=== PATIENT | male | born 1980 | race Caucasian/White ===

== ENCOUNTER 2017-07-03 11:12 | Emergency (ER) | payer OTHER ==
[~2017-07-03] VITALS: Ht 170.2 cm; Wt 93.0 kg
[2017-07-03] MEDS ORDERED: LORazepam 2 MG/ML, 1ML ONE (11:44)
[2017-07-03] MEDS ORDERED: LORazepam 2 MG/ML, 1ML IVPush ONE (12:30)
[2017-07-03 12:33] VITALS: BP 165/111
[2017-07-03] MEDS ORDERED: SODIUM CHLORIDE 0.9% 1,000ML IVBOLUS ONE (13:00)
[2017-07-03] MEDS ORDERED: SODIUM CHLORIDE FLUSH 10ML SYR IVF ONE (13:00)
== END 2017-07-03 12:57 | disposition home or self-care (01) ==
LOC: ED 11:59
DX: T18.108A Unspecified foreign body in esophagus causing other injury, initial encounter (principal); X58.XXXA Exposure to other specified factors, initial encounter; Y93.89 Activity, other specified; Y99.8 Other external cause status; Y92.89 Other specified places as the place of occurrence of the external cause
CPT/HCPCS: 96374; 99284; J2060; J7030

== ENCOUNTER → 2017-07-30 | Outpatient (CLI) | payer OTHER | LOC: RAD 14:44 | PROVIDERS: ATTEND Physician Assistant Surgical | DX: M48.02 Spinal stenosis, cervical region (principal); M79.89 Other specified soft tissue disorders | CPT/HCPCS: 72050 ==

== ENCOUNTER → 2017-09-21 | Outpatient (CLI) | payer OTHER | END | disposition home or self-care (01) | LOC: RAD 09:30 | PROVIDERS: ATTEND Physician Assistant Surgical | DX: M48.02 Spinal stenosis, cervical region (principal) | CPT/HCPCS: 72050 ==

== ENCOUNTER 2018-02-13 20:30 | Emergency (ER) | payer OTHER ==
[~2018-02-13] VITALS: Ht 170.2 cm; Wt 96.4 kg
[2018-02-13 20:31] VITALS: BP 158/108
[2018-02-13] MEDS ORDERED: DEXAMETHASONE 4 MG TABLET PO ONE (21:00)
[2018-02-13] MEDS ORDERED: DEXAMETHASONE 4 MG TABLET ONE (21:03)
== END 2018-02-13 22:01 | disposition home or self-care (01) ==
LOC: ED 21:35
DX: J02.0 Streptococcal pharyngitis (principal); K12.2 Cellulitis and abscess of mouth
CPT/HCPCS: 99283

== ENCOUNTER 2019-08-02 12:16 | Emergency (ER) | payer OTHER ==
[~2019-08-02] VITALS: Ht 172.7 cm; Wt 91.9 kg
[2019-08-02 12:28] VITALS: BP 144/93
--- NOTE | 2019-08-02 12:38 | NUR ---
C/O BODY ACHES, FEVER, SORE THROAT - SX STARTED 2 WEEKS AGO. SPOUSE IN ROOM. NO FLU VACCINATION. HAS TRIED: HALLS, THERA-FLU, NYQUIL, DAYQUIL, TYLENOL "LEFT OVER ANTIBIOTIC" (AMOXICILLIN). IBUPROFEN YESTERDAY; NO MEDS FOR SX TODAY.
--- NOTE | 2019-08-02 12:47 | NUR ---
C/O RT SHOULDER PAIN. EMPLOYMENT: [employer], PAINTING.
== END 2019-08-02 13:50 | disposition home or self-care (01) ==
LOC: ED 13:40
DX: J06.9 Acute upper respiratory infection, unspecified (principal); M25.511 Pain in right shoulder
CPT/HCPCS: 71046; 87081; 87880; 99284

== ENCOUNTER 2019-09-04 20:19 | Emergency (ER) | payer OTHER ==
[~2019-09-04] VITALS: Ht 170.2 cm; Wt 94.1 kg
[2019-09-04] MEDS ORDERED: SODIUM CHLORIDE FLUSH 10ML SYR IVF ONE (20:30)
--- NOTE | 2019-09-04 21:23 | NUR ---
pt called to room from lobby
--- NOTE | 2019-09-04 21:23 | NUR ---
Michele du in [facility] - 09/04/19 at 2123 by MILAD Anthony Carlos
--- NOTE | 2019-09-04 21:35 | NUR ---
PT REPORTS FACIAL SWELLING ON LEFT SIDE WITH DENTAL PAIN, PT REPORTS UPPOER LEFT MOLAR CAUSING PAIN. PT REPORTS INCREASED SWELLING FOR X2 DAYS., REPORTS SLIGHT DIFFICULTY SWALLOWING DUE TO DISCOMFORT. DENIES DIFFICULTY BREATHING. PT PLACED ON MONITORING, CALL LIGHT WITHIN REACH, ALL SAFETY MEASURES IN PLACE.
--- NOTE | 2019-09-04 22:07 | NUR ---
PT RESTING ON [place] WITH FAMILY AT BS, ERP IN ROOM TO EVAL PT.
[2019-09-04 22:11] LABS: BASOPHILS % (AUTO) 1 % (0-1); EOSINOPHILS # (AUTO) 0.42 x10^3/uL (0-0.4); EOSINOPHILS % (AUTO) 6 % (1-7); LYMPHOCYTES # (AUTO) 1.57 x10^3/uL (1-3.4); LYMPHOCYTES % (AUTO) 21 % (22-44); MD NO; MEAN CORPUSCULAR HEMOGLOBIN 26.7 pg (27.5-34.5); MEAN CORPUSCULAR HGB CONC 33.2 g/dL (33.2-36.2); MEAN CORPUSCULAR VOLUME 80.5 fL (81-97); MEAN PLATELET VOLUME 8.8 fL (7.4-10.4); MONOCYTES # (AUTO) 0.74 x10^3/uL (0.2-0.8); MONOCYTES % (AUTO) 10 % (2-9); NEUTROPHILS # (AUTO) 4.69 x10^3/uL (1.8-6.8); NEUTROPHILS % (AUTO) 62 % (42-75); PLATELET COUNT 274 x10^3/uL (130-400); RED CELL DISTRIBUTION WIDTH 14.6 % (9.4-14.8)
[2019-09-04 22:21] LABS: ALBUMIN 3.6 g/dL (3.4-5.0); ANION GAP 4 mmol/L (5-15); CALCIUM 8.4 mg/dL (8.5-10.1); CHLORIDE 108 mmol/L (98-107); CREATININE 1.01 mg/dL (0.7-1.3)
[2019-09-04] MEDS ORDERED: MORPHINE SULFATE 4 MG/ML, 1ML IVPush ONE (22:30)
[2019-09-04] MEDS ORDERED: ONDANSETRON 2MG/ML, 2ML IVPush ONE (22:30)
[2019-09-04] MEDS ORDERED: OMNIPAQUE 350 MG/ML, 100ML BOTTLE ONE (22:43)
[2019-09-04] MEDS ORDERED: ONDANSETRON 2MG/ML, 2ML ONE (22:46)
[2019-09-04] MEDS ORDERED: MORPHINE SULFATE 4 MG/ML, 1ML ONE (22:46)
[2019-09-04 23:13] VITALS: BP 138/96
== END 2019-09-04 23:55 | disposition home or self-care (01) ==
LOC: ED 23:45
DX: K08.89 Other specified disorders of teeth and supporting structures (principal); L03.211 Cellulitis of face; R51 Headache; M54.2 Cervicalgia
CPT/HCPCS: 36415; 70491; 80048; 82040; 85025; 96374; 96375; 99284; J2270; J2405; Q9967

== ENCOUNTER 2020-05-13 22:35 | Emergency (ER) | payer OTHER ==
[~2020-05-13] VITALS: Ht 172.7 cm; Wt 97.2 kg
--- NOTE | 2020-05-13 22:52 | NUR ---
40/M. Aching in back first, then whole body. Unknown if exposed to COVID. Low grade fever in triage 99.9. Denies SOB, cough, N/V/D. Reports at home temp was 103.
[2020-05-13] MEDS ORDERED: ACETAMINOPHEN 500 MG TABLET ONE (23:53)
[2020-05-14] MEDS ORDERED: SODIUM CHLORIDE 0.9% 1,000ML IVBOLUS ONE
[2020-05-14] MEDS ORDERED: ACETAMINOPHEN 500 MG TABLET PO ONE
[2020-05-14] MEDS ORDERED: SODIUM CHLORIDE FLUSH 10ML SYR IVF ONE
[2020-05-14 00:27] LABS: MEAN CORPUSCULAR HGB CONC 32.4 g/dL (33.2-36.2); PLATELET COUNT 262 x10^3/uL (130-400); RED BLOOD COUNT 5.46 x10^6/uL (4.38-5.82); RED CELL DISTRIBUTION WIDTH 14.3 % (9.4-14.8)
[2020-05-14 00:33] LABS: ALANINE AMINOTRANSFERASE 104 U/L (12-78); ALBUMIN 3.8 g/dL (3.4-5.0); ANION GAP 7 mmol/L (5-15); CALCIUM 9.2 mg/dL (8.5-10.1); CHLORIDE 104 mmol/L (98-107); CREATININE 1.13 mg/dL (0.7-1.3)
[2020-05-14 00:35] LABS: ALKALINE PHOSPHATASE 107 U/L (45-117); BILIRUBIN,TOTAL 0.4 mg/dL (0.2-1.0); TOTAL PROTEIN 8.1 g/dL (6.4-8.2)
[2020-05-14 01:05] LABS: MD YES
[2020-05-14 01:07] LABS: BAND#(MANUAL) 0.53 x10^3/uL; BANDS%(MANUAL) 4 % (0-7); LYMPH#(MANUAL) 0.67 x10^3/uL (1-3.4); LYMPHS% (MANUAL) 5 % (22-44); MONOS% (MANUAL) 6 % (2-9); SEG#(MANUAL) 11.31 x10^3/uL (1.8-6.8); SEGS% (MANUAL) 85 % (42-75)
[2020-05-14 01:08] LABS: <PLATELET ESTIMATE> ADEQUATE; <RBC MORPHOLOGY> NORMAL; LARGE PLATELETS 1+
[2020-05-14 02:37] VITALS: BP 115/70
== END 2020-05-14 02:41 | disposition home or self-care (01) ==
LOC: ED 23:37
DX: R50.9 Fever, unspecified (principal); Z20.828 Contact with and (suspected) exposure to other viral communicable diseases; M79.10 Myalgia, unspecified site; R00.0 Tachycardia, unspecified
CPT/HCPCS: 36415; 71045; 80053; 83605; 85025; 87040; 87635; 93005; 96360; 96361; 99285; J7030

== ENCOUNTER 2020-05-17 14:46 | Emergency (ER) | payer OTHER ==
[~2020-05-17] VITALS: Ht 172.7 cm; Wt 94.1 kg
--- NOTE | 2020-05-17 15:20 | NUR ---
BREAK RN: PT C/O BODY ACHES WITH N/D AND FEVERS. PT REPORTS HE WAS TESTED FOR COVID AND IT WAS NEGATIVE. PT HAS BEEN SEEN BY DR BEDOYA. VS STABLE. NO ACUTE DISTRESS NOTED. CALL LIGHT IN PLACE. REPORT GIVEN TO JADE HENDRICKSON.
[2020-05-17] MEDS ORDERED: SODIUM CHLORIDE 0.9% 1,000ML IVBOLUS ONE (15:30)
[2020-05-17] MEDS ORDERED: SODIUM CHLORIDE FLUSH 10ML SYR IVF ONE (15:30)
[2020-05-17 15:42] LABS: BASOPHILS % (AUTO) 1 % (0-1); EOSINOPHILS % (AUTO) 2 % (1-7); LYMPHOCYTES % (AUTO) 11 % (22-44); MEAN CORPUSCULAR HEMOGLOBIN 26.1 pg (27.5-34.5); MEAN CORPUSCULAR HGB CONC 32.8 g/dL (33.2-36.2); MEAN PLATELET VOLUME 8.8 fL (7.4-10.4); MONOCYTES % (AUTO) 11 % (2-9); NEUTROPHILS % (AUTO) 75 % (42-75); PLATELET COUNT 253 x10^3/uL (130-400); RED CELL DISTRIBUTION WIDTH 14.4 % (9.4-14.8)
[2020-05-17 15:47] LABS: MD NO
[2020-05-17 15:49] LABS: ALBUMIN 3.3 g/dL (3.4-5.0); ANION GAP 7 mmol/L (5-15); CHLORIDE 107 mmol/L (98-107)
[2020-05-17 15:53] LABS: ALANINE AMINOTRANSFERASE 226 U/L (12-78); ALKALINE PHOSPHATASE 192 U/L (45-117); BILIRUBIN,TOTAL 0.2 mg/dL (0.2-1.0); CREATININE 0.97 mg/dL (0.7-1.3); TOTAL PROTEIN 7.7 g/dL (6.4-8.2)
--- NOTE | 2020-05-17 17:03 | NUR ---
GOT PATIENT A BEDSIDE COMMODE, STATES HE MAY HAVE TO USE BATHROOM
--- NOTE | 2020-05-17 17:22 | NUR ---
PATIENT GIVEN BEDSIDE COMMODE AND ENCOURAGED TO GET UP BUT CAN'T STOOL, JUST PEE. HE HAS ABDOMINAL PAIN COMING BACK AN 8 OF 10.
[2020-05-17] MEDS ORDERED: MORPHINE SULFATE 4 MG/ML, 1ML IVPush PRN (18:00)
--- NOTE | 2020-05-17 18:15 | NUR ---
PATIENT TO GO TO ULTRASOUND.
[2020-05-17] MEDS ORDERED: MORPHINE SULFATE 4 MG/ML, 1ML ONE (18:18)
--- NOTE | 2020-05-17 18:36 | NUR ---
ULTRASOUND HERE, TOOK PATIENT FOR ULTRASOUND
--- NOTE | 2020-05-17 18:52 | NUR ---
REPORT TO JADE ORELLANA
--- NOTE | 2020-05-17 18:56 | NUR ---
PATIENT JUST GOT BACK FROM ULTRASOUND.
--- NOTE | 2020-05-17 19:18 | NUR ---
REPORT RC'IVÁN FROM EMEKA HANSEN. ERP WAS IN FOR RECHECK.
[2020-05-17 19:24] VITALS: BP 132/83
--- NOTE | 2020-05-17 19:28 | NUR ---
PT STATES HIS IS COMING TO PICK HIM UP. WATER AND JUICE PROVIDED.
--- NOTE | 2020-05-17 19:49 | NUR ---
D/C INSTRUCTIONS, MEDS & F/U APPT RV'WD WITH PT, HE VERBALIZES UNDERSTANDING. RX GIVEN X2. PT AMBULATED OUT OF ED WITHOUT DIFFICULTY, STATES HIS WILL TAKE HIM HOME.
== END 2020-05-17 19:50 | disposition home or self-care (01) ==
LOC: ED 15:03
DX: R74.01 Elevation of levels of liver transaminase levels (principal); R50.9 Fever, unspecified; R10.84 Generalized abdominal pain; R19.7 Diarrhea, unspecified; M79.10 Myalgia, unspecified site; Z87.891 Personal history of nicotine dependence
CPT/HCPCS: 36415; 76700; 80053; 80074; 83690; 85025; 96361; 96374; 99284; J2270; J7030

== ENCOUNTER 2020-05-21 12:26 | Emergency (ER) | payer OTHER ==
[~2020-05-21] VITALS: Ht 170.2 cm; Wt 91.8 kg
[2020-05-21 13:18] LABS: BASOPHILS % (AUTO) 1 % (0-1); EOSINOPHILS % (AUTO) 5 % (1-7); LYMPHOCYTES % (AUTO) 23 % (22-44); MEAN CORPUSCULAR HEMOGLOBIN 26.1 pg (27.5-34.5); MEAN CORPUSCULAR HGB CONC 32.6 g/dL (33.2-36.2); MEAN PLATELET VOLUME 8.1 fL (7.4-10.4); MONOCYTES % (AUTO) 13 % (2-9); NEUTROPHILS % (AUTO) 59 % (42-75); PLATELET COUNT 332 x10^3/uL (130-400); RED CELL DISTRIBUTION WIDTH 14.2 % (9.4-14.8)
[2020-05-21 13:20] LABS: MD NO
[2020-05-21 13:27] LABS: ALANINE AMINOTRANSFERASE 118 U/L (12-78); ALBUMIN 3.5 g/dL (3.4-5.0); ANION GAP 5 mmol/L (5-15); CALCIUM 9.2 mg/dL (8.5-10.1); CHLORIDE 108 mmol/L (98-107); CREATININE 0.98 mg/dL (0.7-1.3)
[2020-05-21 13:29] LABS: ALKALINE PHOSPHATASE 199 U/L (45-117); BILIRUBIN,TOTAL 0.4 mg/dL (0.2-1.0); TOTAL PROTEIN 8.5 g/dL (6.4-8.2)
[2020-05-21 13:56] VITALS: BP 139/88
--- NOTE | 2020-05-21 13:56 | NUR ---
task rn: iv started. iv fluids infusing at this time
[2020-05-21] MEDS ORDERED: SODIUM CHLORIDE 0.9%, 500ML IVBOLUS ONE (14:00)
--- NOTE | 2020-05-21 14:25 | NUR ---
PT TAKEN TO CT
[2020-05-21] MEDS ORDERED: OMNIPAQUE 350 MG/ML, 100ML BOTTLE ONE (14:34)
== END 2020-05-21 15:18 | disposition home or self-care (01) ==
LOC: ED 12:50
DX: B34.9 Viral infection, unspecified (principal); R10.9 Unspecified abdominal pain; R10.31 Right lower quadrant pain; M79.10 Myalgia, unspecified site; R05 Cough; R50.9 Fever, unspecified
CPT/HCPCS: 36415; 71260; 74177; 80053; 82550; 83690; 85025; 99285; J7040; Q9967

== ENCOUNTER 2020-06-24 17:38 | Emergency (ER) | payer OTHER ==
[~2020-06-24] VITALS: Ht 170.2 cm; Wt 94.7 kg
[2020-06-24 18:56] LABS: BASOPHILS % (AUTO) 0 % (0-1); EOSINOPHILS % (AUTO) 1 % (1-7); LYMPHOCYTES % (AUTO) 13 % (22-44); MEAN CORPUSCULAR HEMOGLOBIN 26.3 pg (27.5-34.5); MEAN CORPUSCULAR HGB CONC 32.9 g/dL (33.2-36.2); MEAN PLATELET VOLUME 9.5 fL (7.4-10.4); MONOCYTES % (AUTO) 8 % (2-9); NEUTROPHILS % (AUTO) 78 % (42-75); PLATELET COUNT 212 x10^3/uL (130-400); RED BLOOD COUNT 5.46 x10^6/uL (4.38-5.82); RED CELL DISTRIBUTION WIDTH 14.5 % (9.4-14.8)
[2020-06-24 18:58] LABS: ALANINE AMINOTRANSFERASE 114 U/L (12-78); ALBUMIN 3.5 g/dL (3.4-5.0); ANION GAP 7 mmol/L (5-15); CALCIUM 8.9 mg/dL (8.5-10.1); CHLORIDE 101 mmol/L (98-107); CREATININE 1.13 mg/dL (0.7-1.3)
[2020-06-24 19:00] LABS: ALKALINE PHOSPHATASE 193 U/L (45-117); BILIRUBIN,TOTAL 0.3 mg/dL (0.2-1.0); TOTAL PROTEIN 8.2 g/dL (6.4-8.2)
[2020-06-24 19:02] LABS: MD NO
[2020-06-24] MEDS ORDERED: HYDROmorphone 2 MG/ML, 1ML IVPush PRN (20:00)
[2020-06-24] MEDS ORDERED: ONDANSETRON 2MG/ML, 2ML IVPush ONE (20:00)
[2020-06-24] MEDS ORDERED: SODIUM CHLORIDE 0.9% 1,000ML IVBOLUS ONE (20:00)
[2020-06-24 20:47] LABS: GAMMA GLUTAMYL TRANSPEPTIDASE 548 U/L (15-85)
[2020-06-24 20:49] LABS: CREATINE KINASE, TOTAL 62 U/L (39-308)
[2020-06-24] MEDS ORDERED: HYDROmorphone 1 MG/ML, 1ML INJ ONE (21:01)
[2020-06-24] MEDS ORDERED: ONDANSETRON 2MG/ML, 2ML ONE (21:01)
--- NOTE | 2020-06-24 22:58 | NUR ---
PT D/C WITH D/C SUMMARY AND SCRIPTS. CONTROLLED SUBSTANCE FORM SIGNED AND PLACED WITH PT CHART AT THIS TIME. PT EDUCATED ON NEED TO QUIT DRINKING AND VERBALIZES UNDERSTANDING. D/C VSS AND UPDATED IN EMR PRIOR TO D/C. PT AMBULATES TO REGISTRATION DESK WITH STEADY GAIT FOR D/C HOME WITH SPOUSE AND DENIES ANY OTHER NEEDS PERTAINING TO THIS VISIT. PERIPHERAL IV D/C WITH TIP INTACT.
[2020-06-24 22:59] VITALS: BP 130/90
== END 2020-06-24 23:01 | disposition home or self-care (01) ==
LOC: ED 21:29
DX: M79.10 Myalgia, unspecified site (principal); F10.229 Alcohol dependence with intoxication, unspecified; R10.84 Generalized abdominal pain; R00.0 Tachycardia, unspecified; Y90.9 Presence of alcohol in blood, level not specified
CPT/HCPCS: 36415; 76700; 80053; 82550; 82977; 83690; 85025; 93005; 96361; 96374; 96375; 99285; J1170; J2405; J7030